=== PATIENT | male | born 1950 | race Caucasian/White ===

== ENCOUNTER 2020-12-26 05:49 | Observation (INO) ==
[2020-12-26] MEDS ORDERED: Ondansetron 4 MG/2 ML VIAL IVP PRN (14:13)
[2020-12-26] MEDS ORDERED: Naloxone 0.4 MG/ML INJ IVP PRN (14:13)
[2020-12-26] MEDS ORDERED: Acetaminophen 325 MG TABLET PO PRN (14:13)
[2020-12-26] MEDS ORDERED: Isovue-370 500 ML BOTTLE IVP ONE (17:27)
[2020-12-26 18:06] LABS: Basophils % 0.2 %; Hematocrit 39.3 % (37.5-50.1); Lymphocytes # 2.4 K/mcL (0.6-4.6); Lymphocytes % 16.1 %; Mean Corpuscular HGB Conc 33.1 g/dL (31.6-35.5); Mean Corpuscular Hemoglobin 30.9 pg (28.0-33.3); Mean Corpuscular Volume 93.3 fL (83.0-100.0); Mean Platelet Volume 9.9 fL (9.4-12.4); Monocytes # 1.3 K/mcL (0.0-1.3); Monocytes % 8.6 %; Neutrophils # 11.2 K/mcL (1.6-8.9); Platelet Count 209 K/mcL (140-400); Red Blood Count 4.21 M/mcL (4.19-5.50); Red Cell Distribution Width 13.4 % (11.5-14.5); Segmented Neutrophils % 74.1 %; White Blood Count 15.1 K/mcL (4.3-11.1)
[2020-12-26 18:21] LABS: BUN/Creatinine Ratio 26 (6-26); Blood Urea Nitrogen 19 mg/dL (8-23); Calcium 8.8 mg/dL (8.6-10.3); Carbon Dioxide 25 mEq/L (23-29); Chloride 102 mEq/L (98-107); Glucose 133 mg/dL (70-105); Osmolality,Calculated 286 (280-300); Potassium 4.2 mEq/L (3.5-5.1); Sodium 136 mEq/L (136-145); eGFR For African Americans > 60 (> 60); eGFR For Non-African Americans > 60 (> 60)
[2020-12-26] MEDS: predniSONE 10 MG TABLET PO SCH (18:45)
[2020-12-26] MEDS: Budesonide/Formoterol 160/4.5 1 PUFF INH IH SCH (19:28)
[2020-12-26] MEDS: *HR* OxyCODONE/APAP 10/325 TABLET PO PRN (21:58)
[2020-12-26] MEDS: Apixaban 5 MG TABLET PO SCH (21:59)
[2020-12-26] MEDS: GuaiFENesin/Dextromethorphan TABLET PO SCH (21:59)
[2020-12-26] MEDS: Melatonin 3 MG TABLET PO PRN (21:59)
[2020-12-26] MEDS ORDERED: Ipratropium/Albuterol Neb 3 ML IH SCH (22:00)
[2020-12-26] MEDS: Gabapentin 400 MG CAPSULE PO SCH (22:00)
[2020-12-26] MEDS: Ipratropium/Albuterol Neb 3 ML IH SCH (23:10)
[2020-12-26] MEDS: Simethicone 80 MG TAB.CHEW PO PRN (23:47)
[2020-12-26] MEDS: Nicotine 21 MG PATCH.TD24 TD SCH (23:47)
[2020-12-27 01:26] LABS: Basophils % 0.2 %; Hemoglobin 12.2 g/dL (12.9-16.9); Immature Granulocytes % 1.1 % (0-4); Lymphocytes # 1.1 K/mcL (0.6-4.6); Lymphocytes % 8.4 %; Mean Corpuscular Hemoglobin 30.7 pg (28.0-33.3); Mean Platelet Volume 10.1 fL (9.4-12.4); Monocytes # 0.9 K/mcL (0.0-1.3); Monocytes % 6.5 %; Neutrophils # 11.2 K/mcL (1.6-8.9); Platelet Count 198 K/mcL (140-400); Red Blood Count 3.98 M/mcL (4.19-5.50); Red Cell Distribution Width 13.3 % (11.5-14.5); Segmented Neutrophils % 83.8 %; White Blood Count 13.3 K/mcL (4.3-11.1)
[2020-12-27 01:34] LABS: INR 1.2; Prothrombin Time 13.3 Seconds (9.4-12.1)
[2020-12-27 01:44] LABS: Alanine Aminotransferase 28 Units/L (7-52); Albumin 3.2 g/dL (3.5-5.7); Albumin/Globulin Ratio 1.4 (1.1-2.2); Alkaline Phosphatase 47 Units/L (34-104); Aspartate Amino Transferase 21 Units/L (13-39); BUN/Creatinine Ratio 32 (6-26); Bilirubin,Total 0.3 mg/dL (0.3-1.0); Blood Urea Nitrogen 22 mg/dL (8-23); Calcium 8.5 mg/dL (8.6-10.3); Carbon Dioxide 25 mEq/L (23-29); Chloride 101 mEq/L (98-107); Globulin 2.3 g/dL (2.4-3.5); Glucose 183 mg/dL (70-105); Magnesium 1.7 mg/dL (1.6-2.6); Osmolality,Calculated 286 (280-300); Potassium 4.4 mEq/L (3.5-5.1); Sodium 134 mEq/L (136-145); Total Protein 5.5 g/dL (6.4-8.9); eGFR For African Americans > 60 (> 60); eGFR For Non-African Americans > 60 (> 60)
[2020-12-27] MEDS: Ipratropium/Albuterol Neb 3 ML IH SCH ×4 (03:30→15:15)
[2020-12-27] MEDS: *HR* OxyCODONE/APAP 10/325 TABLET PO PRN ×5 (03:46→22:04)
[2020-12-27] MEDS: Budesonide/Formoterol 160/4.5 1 PUFF INH IH SCH ×2 (07:18→22:06)
[2020-12-27] MEDS: Tiotropium 10 INH DOSE IH SCH (07:18)
[2020-12-27] MEDS: lisinopriL 5 MG TABLET PO SCH (08:14)
[2020-12-27] MEDS: Apixaban 5 MG TABLET PO SCH ×2 (08:14→19:25)
[2020-12-27] MEDS: Furosemide 20 MG TABLET PO SCH (08:14)
[2020-12-27] MEDS: GuaiFENesin/Dextromethorphan TABLET PO SCH ×2 (08:14→19:25)
[2020-12-27] MEDS: predniSONE 10 MG TABLET PO SCH (08:14)
[2020-12-27] MEDS: DilTIAZem CD (24hr) 120 MG CAP.ER.24H PO SCH ×3 (08:14→19:55)
[2020-12-27] MEDS: Gabapentin 400 MG CAPSULE PO SCH ×3 (08:16→19:27)
[2020-12-27] MEDS: Calcium Gluconate 1gm/50mL 1 GM/50 ML BAG IVPB SCH (08:22)
[2020-12-27] MEDS ORDERED: NON-FORMULARY MEDICATION 1 EACH EACH (Fluticasone/Umeclidin/Vilanter [Trelegy Ellipta 100- PO SCH (09:00)
[2020-12-27] MEDS ORDERED: Nicotine 21 MG PATCH.TD24 TD SCH (09:00)
[2020-12-27] MEDS ORDERED: MethylPREDNISolone 40 MG/ML VIAL IVP SCH (13:15)
[2020-12-27] MEDS: Simethicone 80 MG TAB.CHEW PO PRN ×2 (15:03→22:04)
[2020-12-27] MEDS: Azithromycin 250 MG TABLET PO SCH (15:56)
[2020-12-27] MEDS ORDERED: *HR* Metoprolol 5 MG/5 ML VIAL IVP ONE (18:38)
[2020-12-27] MEDS: DilTIAZem 50 MG/50 ML IV.SOLN IVC SCH ×2 (19:04→23:38)
[2020-12-27] MEDS: (Roflumilast [Daliresp] 500 MCG Tablet) PO SCH (21:55)
[2020-12-27] MEDS: Melatonin 3 MG TABLET PO PRN (22:04)
[2020-12-27] MEDS: Nicotine 21 MG PATCH.TD24 TD SCH (22:05)
[2020-12-27] MEDS: Levalbuterol Neb 1.25 MG/3 ML IH SCH (22:06)
[2020-12-27] MEDS: MethylPREDNISolone 40 MG/ML VIAL IVP SCH (23:38)
[2020-12-28 02:58] LABS: Basophils % 0.2 %; Eosinophils % 0.1 %; Hematocrit 39.4 % (37.5-50.1); Hemoglobin 13.1 g/dL (12.9-16.9); Immature Granulocytes % 2.1 % (0-4); Lymphocytes # 1.2 K/mcL (0.6-4.6); Lymphocytes % 9.2 %; Mean Corpuscular HGB Conc 33.2 g/dL (31.6-35.5); Mean Corpuscular Hemoglobin 30.9 pg (28.0-33.3); Mean Corpuscular Volume 92.9 fL (83.0-100.0); Mean Platelet Volume 9.8 fL (9.4-12.4); Monocytes # 0.7 K/mcL (0.0-1.3); Monocytes % 5.6 %; Neutrophils # 10.7 K/mcL (1.6-8.9); Platelet Count 200 K/mcL (140-400); Red Blood Count 4.24 M/mcL (4.19-5.50); Red Cell Distribution Width 13.4 % (11.5-14.5); Segmented Neutrophils % 82.8 %
[2020-12-28 03:23] LABS: % Iron Saturation 19 % (20-55); Alanine Aminotransferase 30 Units/L (7-52); Albumin 3.4 g/dL (3.5-5.7); Albumin/Globulin Ratio 1.4 (1.1-2.2); Alkaline Phosphatase 48 Units/L (34-104); Aspartate Amino Transferase 17 Units/L (13-39); BUN/Creatinine Ratio 31 (6-26); Bilirubin,Total 0.4 mg/dL (0.3-1.0); Blood Urea Nitrogen 23 mg/dL (8-23); Calcium 8.7 mg/dL (8.6-10.3); Carbon Dioxide 28 mEq/L (23-29); Chloride 99 mEq/L (98-107); Globulin 2.4 g/dL (2.4-3.5); Glucose 173 mg/dL (70-105); Iron 63 mcg/dL (65-175); Magnesium 1.8 mg/dL (1.6-2.6); Osmolality,Calculated 288 (280-300); Potassium 4.4 mEq/L (3.5-5.1); Sodium 135 mEq/L (136-145); Total Protein 5.8 g/dL (6.4-8.9); Transferrin 241 mg/dL (203-362); eGFR For African Americans > 60 (> 60); eGFR For Non-African Americans > 60 (> 60)
[2020-12-28 03:39] LABS: Ferritin 183 ng/mL (20-250)
[2020-12-28 03:43] LABS: Folate 9.9 ng/mL (3.0-16.0)
[2020-12-28] MEDS: Levalbuterol Neb 1.25 MG/3 ML IH SCH ×4 (04:00→22:27)
[2020-12-28] MEDS: *HR* OxyCODONE/APAP 10/325 TABLET PO PRN ×5 (04:32→21:03)
[2020-12-28] MEDS: DilTIAZem 50 MG/50 ML IV.SOLN IVC SCH ×2 (06:47→13:52)
[2020-12-28] MEDS ORDERED: Iron Sucrose Complex 400 MG in 0.9 % Sodium Chloride 250 ML IVPB ONE (07:25)
[2020-12-28] MEDS: GuaiFENesin/Dextromethorphan TABLET PO SCH ×2 (08:27→20:28)
[2020-12-28] MEDS: DilTIAZem CD (24hr) 120 MG CAP.ER.24H PO SCH (08:27)
[2020-12-28] MEDS: Gabapentin 400 MG CAPSULE PO SCH ×3 (08:27→20:29)
[2020-12-28] MEDS: Multivit/Ca/Min/Fe/FA 1 TAB TABLET PO SCH (08:27)
[2020-12-28] MEDS: Furosemide 20 MG TABLET PO SCH (08:27)
[2020-12-28] MEDS: lisinopriL 5 MG TABLET PO SCH (08:28)
[2020-12-28] MEDS: MethylPREDNISolone 40 MG/ML VIAL IVP SCH (08:28)
[2020-12-28] MEDS: Apixaban 5 MG TABLET PO SCH ×2 (08:28→20:29)
[2020-12-28] MEDS: Cyanocobalamin (B-12) 1,000 MCG TABLET PO SCH (08:28)
[2020-12-28] MEDS: Azithromycin 250 MG TABLET PO SCH (08:28)
[2020-12-28] MEDS: Simethicone 80 MG TAB.CHEW PO PRN (08:38)
[2020-12-28] MEDS: (Roflumilast [Daliresp] 500 MCG Tablet) PO SCH ×2 (08:42→14:39)
[2020-12-28] MEDS: Tiotropium 10 INH DOSE IH SCH (10:17)
[2020-12-28] MEDS: Budesonide/Formoterol 160/4.5 1 PUFF INH IH SCH ×2 (10:18→22:27)
[2020-12-28] MEDS: Calcium Gluconate 1gm/50mL 1 GM/50 ML BAG IVPB SCH (11:17)
[2020-12-28] MEDS: Nicotine 2 MG GUM BC SCH ×4 (16:09→21:59)
[2020-12-28] MEDS: Nicotine 21 MG PATCH.TD24 TD SCH (23:19)
[2020-12-29] MEDS: *HR* OxyCODONE/APAP 10/325 TABLET PO PRN ×4 (02:09→16:58)
[2020-12-29] MEDS: Levalbuterol Neb 1.25 MG/3 ML IH SCH ×4 (04:04→22:04)
[2020-12-29 05:31] LABS: Basophils % 0.2 %; Hematocrit 38.6 % (37.5-50.1); Hemoglobin 12.6 g/dL (12.9-16.9); Immature Granulocytes % 1.4 % (0-4); Lymphocytes # 1.7 K/mcL (0.6-4.6); Lymphocytes % 10.5 %; Mean Corpuscular HGB Conc 32.6 g/dL (31.6-35.5); Mean Corpuscular Hemoglobin 30.4 pg (28.0-33.3); Mean Corpuscular Volume 93.2 fL (83.0-100.0); Mean Platelet Volume 9.9 fL (9.4-12.4); Monocytes # 1.2 K/mcL (0.0-1.3); Monocytes % 7.1 %; Neutrophils # 13.1 K/mcL (1.6-8.9); Platelet Count 188 K/mcL (140-400); Red Blood Count 4.14 M/mcL (4.19-5.50); Red Cell Distribution Width 13.2 % (11.5-14.5); Segmented Neutrophils % 80.8 %; White Blood Count 16.2 K/mcL (4.3-11.1)
[2020-12-29 05:52] LABS: Alanine Aminotransferase 28 Units/L (7-52); Albumin 3.4 g/dL (3.5-5.7); Albumin/Globulin Ratio 1.5 (1.1-2.2); Alkaline Phosphatase 48 Units/L (34-104); Aspartate Amino Transferase 15 Units/L (13-39); BUN/Creatinine Ratio 41 (6-26); Bilirubin,Total 0.3 mg/dL (0.3-1.0); Blood Urea Nitrogen 31 mg/dL (8-23); Calcium 8.7 mg/dL (8.6-10.3); Carbon Dioxide 27 mEq/L (23-29); Chloride 100 mEq/L (98-107); Globulin 2.3 g/dL (2.4-3.5); Glucose 167 mg/dL (70-105); Magnesium 1.8 mg/dL (1.6-2.6); Osmolality,Calculated 288 (280-300); Phosphorous 3.6 mg/dL (2.7-4.5); Potassium 4.2 mEq/L (3.5-5.1); Sodium 134 mEq/L (136-145); Total Protein 5.7 g/dL (6.4-8.9); eGFR For African Americans > 60 (> 60); eGFR For Non-African Americans > 60 (> 60)
[2020-12-29] MEDS: Nicotine 2 MG GUM BC SCH ×7 (05:59→23:30)
[2020-12-29] MEDS: GuaiFENesin/Dextromethorphan TABLET PO SCH ×2 (07:56→20:27)
[2020-12-29] MEDS: Gabapentin 400 MG CAPSULE PO SCH ×3 (07:56→20:26)
[2020-12-29] MEDS: MethylPREDNISolone 40 MG/ML VIAL IVP SCH (07:56)
[2020-12-29] MEDS: lisinopriL 5 MG TABLET PO SCH (07:58)
[2020-12-29] MEDS: Multivit/Ca/Min/Fe/FA 1 TAB TABLET PO SCH (07:58)
[2020-12-29] MEDS: Furosemide 20 MG TABLET PO SCH (07:59)
[2020-12-29] MEDS: Apixaban 5 MG TABLET PO SCH ×2 (07:59→20:27)
[2020-12-29] MEDS: Cyanocobalamin (B-12) 1,000 MCG TABLET PO SCH (07:59)
[2020-12-29] MEDS ORDERED: DilTIAZem CD (24hr) 240 MG CAP.ER.24H PO SCH (09:00)
[2020-12-29] MEDS ORDERED: DilTIAZem CD (24hr) 180 MG CAP.ER.24H PO SCH (09:00)
[2020-12-29] MEDS: Azithromycin 250 MG TABLET PO SCH (11:27)
[2020-12-29] MEDS: Tiotropium 10 INH DOSE IH SCH (11:49)
[2020-12-29] MEDS: Budesonide/Formoterol 160/4.5 1 PUFF INH IH SCH ×2 (11:49→22:04)
[2020-12-29] MEDS ORDERED: *HR* Metoprolol 5 MG/5 ML VIAL IVP ONE (17:17)
[2020-12-29] MEDS ORDERED: *HR* LORazepam 0.5 MG TABLET PO ONE (17:17)
[2020-12-29] MEDS: (Roflumilast [Daliresp] 500 MCG Tablet) PO SCH (17:46)
[2020-12-29] MEDS ORDERED: *HR* LORazepam 0.5 MG TABLET PO PRN (19:17)
[2020-12-30] MEDS: *HR* OxyCODONE/APAP 10/325 TABLET PO PRN ×3 (00:24→13:40)
[2020-12-30] MEDS: Nicotine 21 MG PATCH.TD24 TD SCH (00:25)
[2020-12-30] MEDS: Levalbuterol Neb 1.25 MG/3 ML IH SCH ×2 (03:42→10:49)
[2020-12-30 03:59] LABS: Basophils # 0.1 K/mcL (0.0-0.2); Basophils % 0.3 %; Eosinophils % 0.1 %; Hematocrit 40.5 % (37.5-50.1); Hemoglobin 13.2 g/dL (12.9-16.9); Immature Granulocytes % 1.5 % (0-4); Lymphocytes % 13.5 %; Mean Corpuscular HGB Conc 32.6 g/dL (31.6-35.5); Mean Corpuscular Hemoglobin 30.7 pg (28.0-33.3); Mean Corpuscular Volume 94.2 fL (83.0-100.0); Mean Platelet Volume 9.8 fL (9.4-12.4); Monocytes # 1.1 K/mcL (0.0-1.3); Monocytes % 7.4 %; Neutrophils # 11.6 K/mcL (1.6-8.9); Nucleated Red Blood Cells 0.1 /100 WBC (0); Platelet Count 181 K/mcL (140-400); Red Cell Distribution Width 13.2 % (11.5-14.5); Segmented Neutrophils % 77.2 %; White Blood Count 15.1 K/mcL (4.3-11.1)
[2020-12-30 04:12] LABS: Alanine Aminotransferase 30 Units/L (7-52); Albumin 3.6 g/dL (3.5-5.7); Albumin/Globulin Ratio 1.6 (1.1-2.2); Alkaline Phosphatase 51 Units/L (34-104); Aspartate Amino Transferase 19 Units/L (13-39); BUN/Creatinine Ratio 43 (6-26); Bilirubin,Total 0.4 mg/dL (0.3-1.0); Blood Urea Nitrogen 30 mg/dL (8-23); Calcium 8.5 mg/dL (8.6-10.3); Carbon Dioxide 27 mEq/L (23-29); Chloride 100 mEq/L (98-107); Globulin 2.2 g/dL (2.4-3.5); Glucose 160 mg/dL (70-105); Magnesium 1.9 mg/dL (1.6-2.6); Osmolality,Calculated 290 (280-300); Phosphorous 3.2 mg/dL (2.7-4.5); Potassium 4.1 mEq/L (3.5-5.1); Sodium 135 mEq/L (136-145); Total Protein 5.8 g/dL (6.4-8.9); eGFR For African Americans > 60 (> 60); eGFR For Non-African Americans > 60 (> 60)
[2020-12-30] MEDS: Nicotine 2 MG GUM BC SCH ×4 (06:00→12:45)
[2020-12-30] MEDS: lisinopriL 5 MG TABLET PO SCH (08:58)
[2020-12-30] MEDS: Gabapentin 400 MG CAPSULE PO SCH (08:58)
[2020-12-30] MEDS: GuaiFENesin/Dextromethorphan TABLET PO SCH (08:59)
[2020-12-30] MEDS: Apixaban 5 MG TABLET PO SCH (08:59)
[2020-12-30] MEDS ORDERED: predniSONE 20 MG TABLET PO SCH (09:00)
[2020-12-30] MEDS: Multivit/Ca/Min/Fe/FA 1 TAB TABLET PO SCH (09:00)
[2020-12-30] MEDS ORDERED: DilTIAZem CD (24hr) 240 MG CAP.ER.24H PO SCH (09:00)
[2020-12-30] MEDS: Azithromycin 250 MG TABLET PO SCH (09:00)
[2020-12-30] MEDS: Cyanocobalamin (B-12) 1,000 MCG TABLET PO SCH (09:04)
[2020-12-30] MEDS: (Roflumilast [Daliresp] 500 MCG Tablet) PO SCH (09:05)
[2020-12-30] MEDS: Furosemide 20 MG TABLET PO SCH (09:12)
[2020-12-30] MEDS: Calcium Gluconate 1gm/50mL 1 GM/50 ML BAG IVPB SCH ×2 (09:13→10:18)
[2020-12-30] MEDS: Tiotropium 10 INH DOSE IH SCH (10:49)
[2020-12-30] MEDS: Budesonide/Formoterol 160/4.5 1 PUFF INH IH SCH (10:49)
[2020-12-30 10:59] VITALS: BP 126/89
== END 2020-12-30 15:52 | disposition home health service (06) ==
LOC: 2NENU → SUATTDRO 13:24
PROVIDERS: ADMIT Internal Medicine; ATTEND Internal Medicine

== ENCOUNTER 2021-03-25 20:14 | Observation (INO) ==
[2021-03-25] MEDS ORDERED: methylPREDNISolone 125 MG/2 ML VIAL IVP ONE (20:42)
[2021-03-25] MEDS ORDERED: cefTRIAXone 1,000 MG in Water for inj. (sterile) 10 ML IVP ONE (20:42)
[2021-03-25] MEDS ORDERED: Ipratropium/Albuterol Neb 3 ML IH ONE (20:42)
[2021-03-25] MEDS ORDERED: Azithromycin 250 MG TABLET PO ONE (20:42)
[2021-03-25] MEDS ORDERED: Isovue-370 500 ML BOTTLE IVP ONE (20:46)
[2021-03-25 21:28] LABS: Basophils % 0.2 %; Eosinophils % 0.2 %; Hemoglobin 14.8 g/dL (12.9-16.9); Immature Granulocytes % 0.6 % (0-4); Lymphocytes % 23.6 %; Mean Corpuscular HGB Conc 32.9 g/dL (31.6-35.5); Mean Corpuscular Hemoglobin 29.9 pg (28.0-33.3); Mean Corpuscular Volume 90.9 fL (83.0-100.0); Mean Platelet Volume 9.8 fL (9.4-12.4); Monocytes # 1.1 K/mcL (0.0-1.3); Monocytes % 8.5 %; Neutrophils # 8.6 K/mcL (1.6-8.9); Platelet Count 240 K/mcL (140-400); Red Blood Count 4.95 M/mcL (4.19-5.50); Red Cell Distribution Width 13.2 % (11.5-14.5); Segmented Neutrophils % 66.9 %; White Blood Count 12.8 K/mcL (4.3-11.1)
[2021-03-25 21:36] LABS: INR 1.6
[2021-03-25 21:50] LABS: Alanine Aminotransferase 23 Units/L (7-52); Albumin/Globulin Ratio 1.4 (1.1-2.2); Alkaline Phosphatase 66 Units/L (34-104); Aspartate Amino Transferase 18 Units/L (13-39); BUN/Creatinine Ratio 18 (6-26); Bilirubin,Indirect 0.4 mg/dL (0.0-1.0); Bilirubin,Total 0.4 mg/dL (0.3-1.0); Blood Urea Nitrogen 17 mg/dL (8-23); Carbon Dioxide 28 mEq/L (23-29); Chloride 99 mEq/L (98-107); Globulin 2.8 g/dL (2.4-3.5); Glucose 128 mg/dL (70-105); Lipase 37 Units/L (11-82); Osmolality,Calculated 289 (280-300); Potassium 3.6 mEq/L (3.5-5.1); Sodium 138 mEq/L (136-145); Total Protein 6.8 g/dL (6.4-8.9); Troponin I 0.03 ng/mL (< 0.04); eGFR For African Americans > 60 (> 60); eGFR For Non-African Americans > 60 (> 60)
[2021-03-25 22:43] LABS: Calcium 9.1 mg/dL (8.6-10.3)
[2021-03-25] MEDS ORDERED: Nicotine 21 MG PATCH.TD24 TD STA (22:45)
[2021-03-25] MEDS ORDERED: *HR* HYDROmorphone (PF) 1 MG/ML SYRINGE IVP ONE (23:43)
[2021-03-26] MEDS ORDERED: Acetaminophen 325 MG TABLET PO PRN (00:57)
[2021-03-26] MEDS ORDERED: Naloxone 0.4 MG/ML INJ IVP PRN (00:57)
[2021-03-26] MEDS ORDERED: Ondansetron 4 MG/2 ML VIAL IVP PRN (00:57)
[2021-03-26] MEDS ORDERED: *HR* Promethazine 25 MG/ML VIAL IM PRN (00:57)
[2021-03-26] MEDS ORDERED: *HR* HYDROmorphone (PF) 1 MG/ML SYRINGE IVP ONE (01:55)
[2021-03-26] MEDS: *HR* HYDROcodone/Acet 5/325 mg TABLET PO PRN ×2 (02:33→08:33)
[2021-03-26] MEDS: Melatonin 3 MG TABLET PO PRN ×2 (02:33→21:46)
[2021-03-26 02:39] LABS: Adenovirus Not Detected (Not Detect); Bordetella Pertussis Not Detected (Not Detect); Chlamydophila pneumoniae Not Detected (Not Detect); Coronavirus 229E Not Detected (Not Detect); Coronavirus HKU1 Not Detected (Not Detect); Coronavirus NL63 Not Detected (Not Detect); Coronavirus OC43 Not Detected (Not Detect); Human Metapneumovirus Not Detected (Not Detect); Human Rhinovirus/Enterovirus Not Detected (Not Detect); Influenza A Subtype 2009 H1 Not Detected (Not Detect); Influenza B Not Detected (Not Detect); Mycoplasma pneumoniae Not Detected (Not Detect); Parainfluenza Virus 1 Not Detected (Not Detect); Parainfluenza Virus 2 Not Detected (Not Detect); Parainfluenza Virus 3 Not Detected (Not Detect); Parainfluenza Virus 4 Not Detected (Not Detect); Respiratory Syncytial Virus Not Detected (Not Detect); SARS-CoV-2 Not Detected (Not Detect)
[2021-03-26] MEDS ORDERED: Ipratropium/Albuterol Neb 3 ML IH PRN (02:43)
[2021-03-26] MEDS ORDERED: GI Cocktail 40 ML EACH PO ONE (04:35)
[2021-03-26] MEDS ORDERED: MethylPREDNISolone 40 MG/ML VIAL IVP SCH (06:00)
[2021-03-26 06:21] LABS: Basophils % 0.1 %; Hematocrit 39.2 % (37.5-50.1); Hemoglobin 12.8 g/dL (12.9-16.9); Immature Granulocytes % 0.5 % (0-4); Lymphocytes # 0.8 K/mcL (0.6-4.6); Mean Corpuscular HGB Conc 32.7 g/dL (31.6-35.5); Mean Corpuscular Hemoglobin 29.4 pg (28.0-33.3); Mean Corpuscular Volume 89.9 fL (83.0-100.0); Mean Platelet Volume 10.2 fL (9.4-12.4); Monocytes # 0.1 K/mcL (0.0-1.3); Monocytes % 1.6 %; Neutrophils # 6.6 K/mcL (1.6-8.9); Platelet Count 199 K/mcL (140-400); Red Blood Count 4.36 M/mcL (4.19-5.50); Red Cell Distribution Width 13.1 % (11.5-14.5); Segmented Neutrophils % 86.8 %; White Blood Count 7.6 K/mcL (4.3-11.1)
[2021-03-26 06:34] LABS: INR 1.3; Prothrombin Time 15.2 Seconds (9.4-12.1)
[2021-03-26 06:49] LABS: BUN/Creatinine Ratio 19 (6-26); Blood Urea Nitrogen 15 mg/dL (8-23); Calcium 8.9 mg/dL (8.6-10.3); Carbon Dioxide 26 mEq/L (23-29); Chloride 100 mEq/L (98-107); Cholesterol 178 mg/dL (< 200); Glucose 227 mg/dL (70-105); HDL Cholesterol 45 mg/dL (40-59); LDL Cholesterol,Calculated 84 mg/dL (< 100); Magnesium 1.4 mg/dL (1.6-2.6); Osmolality,Calculated 292 (280-300); Potassium 3.6 mEq/L (3.5-5.1); Sodium 137 mEq/L (136-145); Triglycerides 247 mg/dL (< 150); eGFR For African Americans > 60 (> 60); eGFR For Non-African Americans > 60 (> 60)
[2021-03-26] MEDS: methylPREDNISolone 125 MG/2 ML VIAL IVP SCH ×3 (07:57→21:44)
[2021-03-26] MEDS: *HR* LORazepam 0.5 MG TABLET PO PRN ×2 (08:33→21:45)
[2021-03-26] MEDS: DilTIAZem CD (24hr) 240 MG CAP.ER.24H PO SCH (08:33)
[2021-03-26] MEDS: Apixaban 5 MG TABLET PO SCH ×2 (08:34→21:45)
[2021-03-26] MEDS: Roflumilast [Daliresp] 500 MCG PO SCH (08:38)
[2021-03-26] MEDS ORDERED: NON-FORMULARY MEDICATION 1 EACH EACH (Fluticasone/Umeclidin/Vilanter [Trelegy Ellipta 100- PO SCH (09:15)
[2021-03-26] MEDS: Tiotropium 10 INH DOSE IH SCH (11:20)
[2021-03-26] MEDS: Budesonide/Formoterol 160/4.5 1 PUFF INH IH SCH ×2 (11:21→20:31)
[2021-03-26] MEDS: Albuterol 2.5 MG/3 ML NEBULIZER IH PRN (11:22)
[2021-03-26] MEDS: Furosemide 20 MG TABLET PO SCH (11:43)
[2021-03-26] MEDS: Nicotine 21 MG PATCH.TD24 TD SCH (11:44)
[2021-03-26] MEDS: Gabapentin 400 MG CAPSULE PO SCH ×3 (11:44→21:45)
[2021-03-26] MEDS: Cyanocobalamin (B-12) 1,000 MCG TABLET PO SCH (11:44)
[2021-03-26] MEDS: Simethicone 80 MG TAB.CHEW PO PRN ×2 (12:15→21:45)
[2021-03-26] MEDS: *HR* OxyCODONE/APAP 10/325 TABLET PO PRN (13:46)
[2021-03-26] MEDS ORDERED: *HR* LORazepam 2 MG/ML VIAL IVP ONE (17:52)
[2021-03-26] MEDS: GuaiFENesin/Dextromethorphan TABLET PO SCH (21:45)
[2021-03-27] MEDS: *HR* OxyCODONE/APAP 10/325 TABLET PO PRN ×2 (06:40→14:37)
[2021-03-27] MEDS: methylPREDNISolone 125 MG/2 ML VIAL IVP SCH ×2 (06:41→13:31)
[2021-03-27] MEDS: Tiotropium 10 INH DOSE IH SCH (07:24)
[2021-03-27] MEDS: Budesonide/Formoterol 160/4.5 1 PUFF INH IH SCH (07:25)
[2021-03-27 09:08] LABS: Basophils % 0.1 %; Hematocrit 38.2 % (37.5-50.1); Hemoglobin 12.6 g/dL (12.9-16.9); Immature Granulocytes % 0.5 % (0-4); Lymphocytes # 0.9 K/mcL (0.6-4.6); Lymphocytes % 8.2 %; Mean Corpuscular Hemoglobin 30.1 pg (28.0-33.3); Mean Corpuscular Volume 91.4 fL (83.0-100.0); Mean Platelet Volume 9.9 fL (9.4-12.4); Monocytes # 0.4 K/mcL (0.0-1.3); Monocytes % 3.7 %; Neutrophils # 9.6 K/mcL (1.6-8.9); Platelet Count 217 K/mcL (140-400); Red Blood Count 4.18 M/mcL (4.19-5.50); Segmented Neutrophils % 87.5 %
[2021-03-27] MEDS ORDERED: 0.9 % Sodium Chloride 1,000 ML IVC SCH (09:15)
[2021-03-27] MEDS: Apixaban 5 MG TABLET PO SCH (09:18)
[2021-03-27] MEDS: Roflumilast [Daliresp] 500 MCG PO SCH (09:19)
[2021-03-27] MEDS: Nicotine 21 MG PATCH.TD24 TD SCH (09:19)
[2021-03-27] MEDS: Gabapentin 400 MG CAPSULE PO SCH ×2 (09:19→14:34)
[2021-03-27] MEDS: DilTIAZem CD (24hr) 240 MG CAP.ER.24H PO SCH (09:19)
[2021-03-27] MEDS: GuaiFENesin/Dextromethorphan TABLET PO SCH (09:19)
[2021-03-27] MEDS: Furosemide 20 MG TABLET PO SCH (09:19)
[2021-03-27] MEDS: Cyanocobalamin (B-12) 1,000 MCG TABLET PO SCH (09:19)
[2021-03-27 09:22] LABS: INR 1.5
[2021-03-27 09:25] LABS: BUN/Creatinine Ratio 26 (6-26); Blood Urea Nitrogen 20 mg/dL (8-23); Calcium 8.8 mg/dL (8.6-10.3); Chloride 101 mEq/L (98-107); Glucose 165 mg/dL (70-105); Osmolality,Calculated 288 (280-300); Potassium 4.1 mEq/L (3.5-5.1); Sodium 136 mEq/L (136-145); eGFR For African Americans > 60 (> 60); eGFR For Non-African Americans > 60 (> 60)
[2021-03-27 09:59] LABS: Carbon Dioxide 28 mEq/L (23-29)
[2021-03-27] MEDS: Albuterol 2.5 MG/3 ML NEBULIZER IH PRN (10:05)
[2021-03-27 11:14] VITALS: PULSE 84; TEMP 97.6; O2SAT 94
[2021-03-27 15:37] VITALS: BP 107/75
[2021-03-27] MEDS: *HR* LORazepam 0.5 MG TABLET PO PRN (16:57)
[2021-03-28] MEDS ORDERED: DilTIAZem CD (24hr) 180 MG CAP.ER.24H PO SCH (09:00)
== END 2021-03-27 17:03 | disposition home or self-care (01) ==
LOC: EMEROOARM 20:14 → CDU 20:14 → SUATTDRO 03-26 01:09 → CDU 03-26 02:15
PROVIDERS: ADMIT Pharmacist; ATTEND Internal Medicine